=== PATIENT | female | born 1960 | race Caucasian/White ===

== ENCOUNTER 2023-09-11 05:54 | Emergency (ER) | payer BC, OTHER ==
[~2023-09-11] VITALS: Ht 167.6 cm; Wt 66.7 kg
[2023-09-11 06:16] VITALS: O2SAT 97
[2023-09-11] MEDS ORDERED: IBUPROFEN 400 MG TABLET ONE (07:15)
[2023-09-11] MEDS ORDERED: ACETAMINOPHEN ES 500 MG TABLET ONE ×2 (07:15→07:18)
[2023-09-11] MEDS: IBUPROFEN 400 MG TABLET PO ONE (07:19)
[2023-09-11] MEDS: ACETAMINOPHEN 325 MG TABLET PO ONE (07:19)
[2023-09-11] MEDS ORDERED: TDAP DIPH,PERTUSS,TET VAC/PF 0.5 ML DISP.SYRIN IM ONE (08:12)
[2023-09-11] MEDS: TDAP DIPH,PERTUSS,TET VAC/PF 0.5 ML DISP.SYRIN IM ONE (08:15)
== END 2023-09-11 08:32 | disposition home or self-care (01) ==
LOC: ER 05:59
DX: S62.616A Displaced fracture of proximal phalanx of right little finger, initial encounter for closed fracture (principal); S01.511A Laceration without foreign body of lip, initial encounter; M23.91 Unspecified internal derangement of right knee; W01.0XXA Fall on same level from slipping, tripping and stumbling without subsequent striking against object, initial encounter; Y93.89 Activity, other specified; Y92.89 Other specified places as the place of occurrence of the external cause; Y99.8 Other external cause status
CPT/HCPCS: 70450; 70486; 72125; 73130; 90715; A4606; A4663; A9150